=== PATIENT | male | born 1975 | race Caucasian/White ===

== ENCOUNTER → 2018-07-14 | Outpatient (REF) | payer BC ==
[2018-07-14 16:57] LABS: INFLUENZA A AMPLIFICATION NEGATIVE (NEGATIVE); INFLUENZA B AMPLIFICATION NEGATIVE (NEGATIVE)
== END ==
LOC: M LAB REF 16:11
PROVIDERS: ATTEND Physician Assistant
DX: R68.89 Other general symptoms and signs (principal)

== ENCOUNTER → 2019-10-12 | Outpatient (CLI) | payer BC | LOC: M LABSMTC 10:59 | PROVIDERS: ATTEND Family Medicine | DX: Z11.59 Encounter for screening for other viral diseases (principal); Z20.828 Contact with and (suspected) exposure to other viral communicable diseases ==

== ENCOUNTER 2021-01-22 09:00 | Outpatient (RCR) | payer OTHER | END 2021-01-25 | LOC: M OT 09:00 | PROVIDERS: ATTEND Orthopaedic Surgery | DX: S60.022D Contusion of left index finger without damage to nail, subsequent encounter (principal) ==

== ENCOUNTER 2021-02-20 09:00 | Outpatient (RCR) | payer OTHER | END 2021-02-25 | LOC: M OT 09:00 | PROVIDERS: ATTEND Orthopaedic Surgery | DX: S60.022D Contusion of left index finger without damage to nail, subsequent encounter (principal) ==